=== PATIENT | male | born 1960 | race Caucasian/White ===

== ENCOUNTER 2016-11-05 08:53 | Emergency (ER) | payer OTHER ==
[~2016-11-05] VITALS: Ht 187.9 cm; Wt 83.0 kg
[~2016-11-05 08:53] MED LIST: AMOXICILLIN500 MG PO; CELEXA10 MG PO; CLEOCIN HCL300 MG PO; DAYPRO600 M1 PO; FLONASE 0.05% 121 EA NAS; GOOD SENSE IBU200 MG; MOTRIN800 MG PO; NAPROSYN500 MG PO; NKHM; ZYRTEC10 MG PO
[2016-11-05] MEDS ORDERED: KEFLEX500 M1 PO (09:07)
[2016-11-05] MEDS ORDERED: BACTRIM DS 8001 TA1 PO (09:07)
== END 2016-11-05 11:20 | disposition home or self-care (01) ==
LOC: ED 08:53
DX: L02.411 Cutaneous abscess of right axilla (principal); R03.0 Elevated blood-pressure reading, without diagnosis of hypertension; F17.200 Nicotine dependence, unspecified, uncomplicated

== ENCOUNTER → 2018-09-10 | Emergency (ER) | payer OTHER ==
[~2018-09-10] VITALS: Ht 187.9 cm; Wt 85.3 kg
[~2018-09-10] MED LIST changes: +BACTRIM DS 8001 TA1 PO; +KEFLEX500 M1 PO
== END ==
LOC: ED 09:23
DX: S40.012A Contusion of left shoulder, initial encounter (principal); W00.0XXA Fall on same level due to ice and snow, initial encounter; Y93.89 Activity, other specified; Y92.89 Other specified places as the place of occurrence of the external cause; Y99.8 Other external cause status

== ENCOUNTER 2020-01-01 11:25 | Emergency (ER) | payer OTHER ==
[~2020-01-01] VITALS: Ht 187.9 cm; Wt 84.8 kg
[2020-01-01 12:53] LABS: BASO # 0.1 10*3/uL (0.0-0.1); BASO % 0.6 % (0.0-1.0); EOS # 0.3 10*3/uL (0.0-0.4); EOS % 3.1 % (1.0-4.0); HEMATOCRIT 41.3 % (42.0-52.0); LYMPH # 1.6 10*3/uL (1.3-4.4); LYMPH % 18.1 % (27.0-41.0); MEAN CELL VOLUME 88.1 fl (80.0-94.0); MEAN CORPUSCULAR HGB 28.4 pg (27.0-31.0); MEAN CORPUSCULAR HGB CONC 32.2 g/dl (33.0-37.0); MEAN PLATELET VOLUME 9.7 fl (9.6-12.3); MONO # 0.8 10*3/uL (0.1-1.0); PLATELET COUNT AUTOMATED 288 10*3/uL (130-400); RED BLOOD COUNT 4.69 10*6/uL (4.50-5.90); RED CELL DISTRI WIDTH 14.1 % (0-14.5); WHITE BLOOD COUNT 8.6 10*3/uL (4.8-10.8)
[2020-01-01 13:06] LABS: ALBUMIN 3.7 gm/dl (3.1-4.5); ALKALINE PHOSPHATASE 95 U/L (45-117); BUN 14 mg/dl (7-24); CHLORIDE 110 mmol/L (98-107); CREATININE 0.88 mg/dL (0.70-1.30); POTASSIUM 3.4 mmol/L (3.5-5.1); SGOT/AST 22 IU/L (3-35); SGPT/ALT 37 U/L (12-78); SODIUM 141 mmol/L (136-145); TOTAL PROTEIN 7.5 gm/dL (6.4-8.2)
[2020-01-01] MEDS ORDERED: SEPTDS PO ×2 (14:03→14:24)
[2020-01-01] MEDS ORDERED: MELOXICAM15 MG PO ×2 (14:03→14:24)
== END 2020-01-01 14:09 | disposition home or self-care (01) ==
LOC: ED 11:25
PROVIDERS: Nurse Practitioner
DX: L03.114 Cellulitis of left upper limb (principal)

== ENCOUNTER 2021-07-18 18:00 | Inpatient (IN) | payer BC ==
[~2021-07-18] VITALS: Ht 188 cm; Wt 85.0 kg
[~2021-07-18 18:00] MED LIST changes: +MELOXICAM15 MG PO; +SEPTDS PO
[2021-07-18 18:18] VITALS: BP 149/89
[2021-07-18] MEDS ORDERED: CITALOPRAM20 MG PO (18:36)
[2021-07-18 19:19] LABS: BASO % 0.5 % (0.0-1.0); EOS # 0.1 10*3/uL (0.0-0.4); EOS % 1.3 % (1.0-4.0); HEMATOCRIT 45.9 % (42.0-52.0); LYMPH # 1.2 10*3/uL (1.3-4.4); LYMPH % 14.2 % (27.0-41.0); MEAN CELL VOLUME 89.1 fl (80.0-94.0); MEAN CORPUSCULAR HGB 29.3 pg (27.0-31.0); MEAN CORPUSCULAR HGB CONC 32.9 g/dl (33.0-37.0); MEAN PLATELET VOLUME 9.7 fl (9.6-12.3); MONO # 0.7 10*3/uL (0.1-1.0); MONO % 8.4 % (3.0-9.0); NEUT # 6.4 10*3/uL (2.3-7.9); NEUT % 75.2 % (47.0-73.0); PLATELET COUNT AUTOMATED 330 10*3/uL (130-400); RED BLOOD COUNT 5.15 10*6/uL (4.50-5.90); RED CELL DISTRI WIDTH 13.7 % (0-14.5); WHITE BLOOD COUNT 8.4 10*3/uL (4.8-10.8)
[2021-07-18 19:29] LABS: ACT PARTIAL THROMBO TIME 27.6 SECONDS (20.0-32.1)
[2021-07-18 19:34] LABS: ALBUMIN 3.8 gm/dl (3.1-4.5); ALKALINE PHOSPHATASE 109 U/L (45-117); BUN 18 mg/dl (7-24); CHLORIDE 107 mmol/L (98-107); CREATININE 0.92 mg/dL (0.70-1.30); POTASSIUM 3.7 mmol/L (3.5-5.1); SGOT/AST 23 IU/L (3-35); SGPT/ALT 29 U/L (12-78); SODIUM 140 mmol/L (136-145); TOTAL PROTEIN 8.1 gm/dL (6.4-8.2)
[2021-07-18 23:23] VITALS: BP 160/85
[2021-07-19 06:19] LABS: BASO % 0.5 % (0.0-1.0); EOS # 0.3 10*3/uL (0.0-0.4); EOS % 3.2 % (1.0-4.0); HEMATOCRIT 41.7 % (42.0-52.0); LYMPH # 1.6 10*3/uL (1.3-4.4); LYMPH % 18.9 % (27.0-41.0); MEAN CELL VOLUME 88.7 fl (80.0-94.0); MEAN CORPUSCULAR HGB 29.1 pg (27.0-31.0); MEAN CORPUSCULAR HGB CONC 32.9 g/dl (33.0-37.0); MEAN PLATELET VOLUME 9.8 fl (9.6-12.3); MONO # 0.9 10*3/uL (0.1-1.0); MONO % 10.6 % (3.0-9.0); NEUT # 5.6 10*3/uL (2.3-7.9); NEUT % 66.4 % (47.0-73.0); PLATELET COUNT AUTOMATED 292 10*3/uL (130-400); RED CELL DISTRI WIDTH 13.7 % (0-14.5); WHITE BLOOD COUNT 8.4 10*3/uL (4.8-10.8)
[2021-07-19 06:34] LABS: CHLORIDE 111 mmol/L (98-107); POTASSIUM 3.7 mmol/L (3.5-5.1); SODIUM 142 mmol/L (136-145)
[2021-07-19 06:52] LABS: ALBUMIN 3.1 gm/dl (3.1-4.5); ALKALINE PHOSPHATASE 99 U/L (45-117); BUN 13 mg/dl (7-24); CREATININE 0.92 mg/dL (0.70-1.30); FREE T4 1.14 ng/dl (0.76-1.46); SGOT/AST 19 IU/L (3-35); SGPT/ALT 22 U/L (12-78); THYROID STIM HORMONE (HS) 0.707 uIU/ml (0.358-4.75)
[2021-07-19 08:00] VITALS: BP 137/87
[2021-07-19 09:36] VITALS: BP 118/69
[2021-07-19 09:51] VITALS: BP 122/71
[2021-07-19 10:06] VITALS: BP 131/65
[2021-07-19 12:00] VITALS: BP 122/63
[2021-07-19] MEDS ORDERED: VIBRA-TAB100 MG PO (12:27)
== END 2021-07-19 14:01 | disposition home or self-care (01) | DRG 558 ==
LOC: ED 18:00 → EDHOLD 21:42 → 4E 22:04
PROVIDERS: Internal Medicine; Nurse Practitioner Family; ADMIT Student in an Organized Health Care Education/Training Program; ATTEND Student in an Organized Health Care Education/Training Program
PROC: 0H9FXZZ Drainage of Right Hand Skin, External Approach (ICD-10-PCS; principal; 2021-07-18)
DX: M65.9 Synovitis and tenosynovitis, unspecified (principal); K02.9 Dental caries, unspecified; R03.0 Elevated blood-pressure reading, without diagnosis of hypertension; F17.210 Nicotine dependence, cigarettes, uncomplicated; E83.41 Hypermagnesemia; F32.A Depression, unspecified; D64.9 Anemia, unspecified; M10.9 Gout, unspecified; Z82.49 Family history of ischemic heart disease and other diseases of the circulatory system; Z71.6 Tobacco abuse counseling; Z79.899 Other long term (current) drug therapy

== ENCOUNTER 2025-01-09 21:15 | Emergency (ER) | payer BC ==
[~2025-01-09] VITALS: Ht 187.9 cm
[~2025-01-09 21:15] MED LIST changes: +CITALOPRAM20 MG PO; +VIBRA-TAB100 MG PO
[2025-01-09] MEDS ORDERED: Lidocaine Hydrochloride 2% 10 ML AMP SC ONE (22:25)
[2025-01-09] MEDS ORDERED: CEPHALEXIN 500 MG CAP PO ONE (22:25)
[2025-01-09] MEDS ORDERED: Bacitracin Zinc 14 GM TUBE T ONE (22:25)
[2025-01-09] MEDS ORDERED: CEPHALEXIN500 M1 PO (23:00)
== END 2025-01-09 23:32 | disposition home or self-care (01) ==
LOC: ED 21:15
DX: S61.012A Laceration without foreign body of left thumb without damage to nail, initial encounter (principal); F32.A Depression, unspecified; Z87.891 Personal history of nicotine dependence; W26.0XXA Contact with knife, initial encounter; Y93.89 Activity, other specified; Y92.89 Other specified places as the place of occurrence of the external cause; Y99.8 Other external cause status; Z79.899 Other long term (current) drug therapy

== ENCOUNTER 2025-01-19 15:24 | Emergency (ER) | payer BC ==
[~2025-01-19 15:24] MED LIST changes: +CEPHALEXIN500 M1 PO
== END 2025-01-19 15:41 | disposition home or self-care (01) ==
LOC: ED 15:24
DX: S61.012D Laceration without foreign body of left thumb without damage to nail, subsequent encounter (principal); F17.210 Nicotine dependence, cigarettes, uncomplicated; Z48.02 Encounter for removal of sutures; W45.8XXD Other foreign body or object entering through skin, subsequent encounter